=== PATIENT | female | born 1980 | race American Indian/Alaskan Native ===

== ENCOUNTER 2019-06-10 13:43 | Emergency (ER) | payer SELFPAY ==
--- NOTE | 2019-06-10 14:00 | Emergency Department Report ---
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 Pt was informed on 06/03 that the patient was confirmed positive for COVID. Pt has been in self-qu arantine since that time. Pt states she does not believe she was wearing PPE at that time. She now reports 2 day history of productive cough, body aches, runny nose, shortness of breath. Pt denies fever, reports chills. MD Complaint: cough -: days(s) (2) Severity: mild Consistency: constant Context: sick contacts (COVID +) Associated Symptoms: myalgias, rhinorrhea, cough, shortness of breath. denies: fever, sore throat, nausea, vomiting, diarrhea - Related Data Allergies Allergy/AdvReac Type Severity Reaction Status Date / Time No Known Allergies Allergy Unverified 06/10/19 13:45 ED Review of Systems ROS: Stated complaint: SHORTNESS OF BREATH Other details as noted in HPI Comment: All other systems reviewed and negative Constitutional: chills. denies: fever ENT: congestion. denies: throat pain Respiratory: cough, shortness of breath Cardiovascular: denies: chest pain Gastrointestinal: denies: nausea, vomiting, diarrhea Musculoskeletal: myalgia ED Past Medical Hx - Past Medical History Previous Medical History?: No - Surgical History Past Surgical History?: Yes Hx Appendectomy: Yes Additional Surgical History: myomectomy. x 1 - Social History Smoking Status: Never Smoker Substance Use Type: None ED Physical Exam - General Limitations: No Limitations General appearance: alert, in no apparent distress - Head Head exam: Present: atraumatic, normocephalic - Eye Eye exam: Present: normal appearance, EOMI - ENT ENT exam: Present: mucous membranes moist - Neck Neck exam: Present: normal inspection - Respiratory Respiratory exam: Present: normal lung sounds bilaterally. Absent: respiratory distress - Cardiovascular Cardiovascular Exam: Present: regular rate, normal rhythm - GI/Abdominal GI/Abdominal exam: Absent: distended - Extremities Exam Extremities exam: Present: normal inspection - Neurological Exam Neurological exam: Present: alert, oriented X3 - Psychiatric Psychiatric exam: Present: normal affect, normal mood - Skin Skin exam: Present: warm, dry, intact, normal color ED Course Vital Signs 06/10/19 06/10/19 14:24 16:07 Temperature 99.9 F H Pulse Rate 93 H 89 Respiratory 16 16 Rate Blood Pressure 125/77 127/73 [Left] O2 Sat by Pulse 100 100 Oximetry ED Medical Decision Making - Lab Data Result diagrams: 06/10/19 Unknown 06/10/19 Unknown - Radiology Data Radiology results: report reviewed, image reviewed - Medical Decision Making - known exposure to +COVID patient - denied fever at home, low grade temp here in ED - otherwise vitals normal - no resp distress, O2 sats normal - pt will be d/c'd home - name submitted online to [facility] of Health for COVID testing referral - swabs collected here in ED - pt advised to continue to self- quarantine - return precautions given - Differential Diagnosis pneumonia, viral illness, URI Critical care attestation.: If time is entered above; I have spent that time in minutes in the direct care of this critically ill patient, excluding procedure time. ED Disposition Clinical Impression: Upper respiratory infection Disposition: DC-01 TO HOME OR SELFCARE Is pt being admited?: No Condition: Stable Instructions: Upper Respiratory Infection (ED) Additional Instructions: Your chest xray was normal. Your flu test was negative. Your vital signs are normal. Your name has been referred to the Dept of Health to request that you get tested. If they feel that you meet the criteria, your swabs will be sent. Please continue to self-quarantine. Return to the ER if your symptoms worsen. Referrals: YOVANI PEDERSEN MD [Primary Care Provider] - 3-5 Days Time of Disposition: 17:09
[2019-06-10 14:55] LABS: Basophils % (Auto) 0.2 % (0.0-1.8); Hematocrit 37.9 % (30.3-42.9); Hemoglobin 12.8 gm/dl (10.1-14.3); Lymphocytes # (Auto) 0.8 K/mm3 (1.2-5.4); Lymphocytes % (Auto) 19.6 % (13.4-35.0); Mean Corpuscular HGB Conc 34 % (30-34); Mean Corpuscular Volume 82 fl (79-97); Monocytes # (Auto) 0.2 K/mm3 (0.0-0.8); Monocytes % (Auto) 3.8 % (0.0-7.3); Platelet Count 209 K/mm3 (140-440); Red Blood Count 4.64 M/mm3 (3.65-5.03); Red Cell Distribution Width 14.1 % (13.2-15.2)
[2019-06-10 15:16] LABS: BUN/Creatinine Ratio 12; Blood Urea Nitrogen 7 mg/dL (7-17); Calcium 9.7 mg/dL (8.4-10.2); Hemolysis Index 66
[2019-06-10 16:09] VITALS: BP 127/73
--- NOTE | 2019-06-10 16:37 | XRay Report ---
CHEST 1 VIEW 06/10/2019 3:29 PM INDICATION / CLINICAL INFORMATION: Cough and shortness of breath.. COMPARISON: None available. FINDINGS: SUPPORT DEVICES: None. HEART / MEDIASTINUM: No significant abnormality. LUNGS / PLEURA: No significant pulmonary or pleural abnormality. No pneumothorax. ADDITIONAL FINDINGS: No significant additional findings. IMPRESSION: 1. No acute findings. Signer Name: Bimal Garg MD Signed: 06/10/2019 4:33 PM Workstation Name: [id number]
== END 2019-06-10 18:04 | disposition home or self-care (01) ==
LOC: ED 13:43
DX: J06.9 Acute upper respiratory infection, unspecified (principal)
CPT/HCPCS: 36415; 71045; 80048; 84703; 85025; 87400

== ENCOUNTER 2020-09-26 16:20 | Emergency (ER) | payer OTHER ==
[2020-09-26 18:12] LABS: Basophils % (Auto) 0.5 % (0.0-1.8); Eosinophils % (Auto) 0.8 % (0.0-4.3); Hematocrit 36.1 % (30.3-42.9); Hemoglobin 11.9 gm/dl (10.1-14.3); Lymphocytes % (Auto) 24.7 % (13.4-35.0); Mean Corpuscular HGB Conc 33 % (30-34); Mean Corpuscular Volume 84 fl (79-97); Monocytes # (Auto) 0.3 K/mm3 (0.0-0.8); Monocytes % (Auto) 7.2 % (0.0-7.3); Platelet Count 197 K/mm3 (140-440); Red Blood Count 4.29 M/mm3 (3.65-5.03); Red Cell Distribution Width 14.9 % (13.2-15.2)
--- NOTE | 2020-09-26 20:21 | Emergency Department Report ---
ED Female HPI - General Chief complaint: Vaginal Bleeding Stated complaint: 12 WKS AND BLEEDING Time Seen by Provider: 09/26/20 20:02 Source: patient Mode of arrival: Ambulatory Limitations: No Limitations - History of Present Illness Complaint: vaginal bleeding, pelvic pain -: Gradual Location: suprapubic Radiation: non-radiating Severity: mild, moderate Quality: cramping - Related Data Allergies Allergy/AdvReac Type Severity Reaction Status Date / Time No Known Allergies Allergy Unverified 06/10/19 13:45 ED Review of Systems ROS: Stated complaint: 12 WKS AND BLEEDING Other details as noted in HPI ED Past Medical Hx - Past Medical History Previous Medical History?: Yes Additional medical history: Childbirth - Surgical History Past Surgical History?: Yes Hx Appendectomy: Yes Additional Surgical History: myomectomy. x 1 - Social History Smoking Status: Never Smoker Substance Use Type: None ED Physical Exam - General Limitations: No Limitations ED Course Vital Signs 09/26/20 16:41 Temperature 99.0 F Pulse Rate 89 Respiratory 18 Rate Blood Pressure 131/74 O2 Sat by Pulse 100 Oximetry ED Medical Decision Making - Lab Data Result diagrams: 09/26/20 17:43 Lab Results 09/26/20 09/26/20 09/26/20 Range/Units 17:43 17:43 Unknown WBC 4.2 L (4.5-11.0) K/mm3 RBC 4.29 (3.65-5.03) M/mm3 Hgb 11.9 (10.1-14.3) gm/dl Hct 36.1 (30.3-42.9) % MCV 84 (79-97) fl MCH 28 (28-32) pg MCHC 33 (30-34) % RDW 14.9 (13.2-15.2) % Plt Count 197 (140-440) K/mm3 Lymph % (Auto) 24.7 (13.4-35.0) % [place] % (Auto) 7.2 (0.0-7.3) % Eos % (Auto) 0.8 (0.0-4.3) % Baso % (Auto) 0.5 (0.0-1.8) % Lymph # (Auto) 1.0 L (1.2-5.4) K/mm3 [place] # (Auto) 0.3 (0.0-0.8) K/mm3 Eos # (Auto) 0.0 (0.0-0.4) K/mm3 Baso # (Auto) 0.0 (0.0-0.1) K/mm3 Seg Neutrophils % 66.8 (40.0-70.0) % Seg Neutrophils # 2.8 (1.8-7.7) K/mm3 HCG, Quant 5757 H (0-4) mIU/mL Blood Type A POSITIVE - Radiology Data Radiology results: report reviewed [address] [place] [id number] Ultrasound Report Signed Patient: JAYME WALL MR#: [id number] [birth year] : 1980 Acct:[id number] Age/Sex: 40 / F ADM Date: 09/26/20 Loc: ED Attending Dr: Ordering Physician: IAN SEGURA Date of Service: 09/26/20 Procedure(s): US OB transvaginal Accession Number(s): [id number] cc: IAN SEGURA ULTRASOUND OBSTETRIC INDICATION / CLINICAL INFORMATION: Vaginal bleeding pain. HCG level = 5757. Clinical Gestational Age (GA) in weeks, days: 12, 3 with an LMP of 07/01/20. TECHNIQUE: Transabdominal and Transvaginal. COMPARISON: None available. FINDINGS: UTERUS: No intrauterine identified. Uterus is enlarged measuring 11.3 x 12.6 x 12.0 cm. There are multiple fibroids throughout the uterus measuring up to 8.1 cm in size in the fundus. ADNEXA: Right ovary appears within normal limits. Left ovary is not visualized. No adnexal mass or cyst. FREE FLUID: None. ADDITIONAL FINDINGS: None. IMPRESSION: 1. No intrauterine identified. 2. Enlarged uterus containing multiple fibroids. Signer Name: Frederic Em MD Signed: 09/26/2020 10:10 PM Workstation Name: [id number] Transcribed By: DT Dictated By: Britton Em MD Electronically Authenticated By: Britton Em MD Signed Date/Time: 09/26/202209 DD/ 05 TD/TT: - Medical Decision Making This patient presents with vaginal bleeding in the first trimester, differential diagnosis includes ectopic , IUP, month threatened/inevitable , along with a completed . Patient is HDS and without a history of coagulopathy or infectious symptoms. The ultrasound not reveal an IUP at this time although the quant is elevated hCG quant Based on exam history and ED work-up patient presentation is not consistent with an ectopic , life-threatening coagulopathy, trauma, serious bacterial infection, central process or other emergency. Ultrasound showing multiple uterine flap fibroids is a possibility that patient did not be secondary to fibroids or the nonemergent cause of abnormal uterine bleeding but will make notation again that hCG is elevated plan is to discharge home with return precautions and instructions for prompt [facility] follow-up Critical care attestation.: If time is entered above; I have spent that time in minutes in the direct care of this critically ill patient, excluding procedure time. ED Disposition Clinical Impression: Vaginal bleeding, Uterine fibroids affecting in first trimester, Elevated serum hCG Disposition: - TO HOME OR SELFCARE Is pt being admited?: No Does the pt Need Aspirin: No Condition: Stable Instructions: Vaginal Bleeding During , First Trimester, Abnormal Uterine Bleeding Additional Instructions: Seen and evaluated emergency department today for vaginal bleeding. hCG is elevated although the ultrasound showing no evidence of any but several fibroid. Is likely that she may have had a miscarriage, has some fibroid associated bleeding among other causes. Please follow-up with your [facility] within 2 days. Return to emerge department if you experience worsening or uncontrolled bleeding, shortness of breath, feeling lightheaded, chest tightness, abdominal cramping, severe abdominal pain, fevers, vomiting or any other concerning symptom. Referrals: ZENY INMAN MD [Primary Care Provider] - 3-5 Days
[2020-09-26 21:52] VITALS: BP 131/74
--- NOTE | 2020-09-26 22:14 | Ultrasound Report ---
ULTRASOUND OBSTETRIC INDICATION / CLINICAL INFORMATION: Vaginal bleeding pain. HCG level = 5757. Clinical Gestational Age (GA) in weeks, days: 12, 3 with an LMP of 07/01/20. TECHNIQUE: Transabdominal and Transvaginal. COMPARISON: None available. FINDINGS: UTERUS: No intrauterine identified. Uterus is enlarged measuring 11.3 x 12.6 x 12.0 cm. The re are multiple fibroids throughout the uterus measuring up to 8.1 cm in size in the fundus. ADNEXA: Right ovary appears within normal limits. Left ovary is not visualized. No adnexal mass or cy st. FREE FLUID: None. ADDITIONAL FINDINGS: None. IMPRESSION: 1. No intrauterine identified. 2. Enlarged uterus containing multiple fibroids. Signer Name: Frederic Em MD Signed: 09/26/2020 10:10 PM Workstation Name: [id number]
[2020-09-26] MEDS ORDERED: HYDROcodone/ACETAMINOPHEN 5-325 MG TAB PO STA (23:38)
== END 2020-09-26 23:30 | disposition home or self-care (01) ==
LOC: ED 16:20
DX: O34.11 Maternal care for benign tumor of corpus uteri, first trimester (principal); O26.891 Other specified pregnancy related conditions, first trimester; E34.9 Endocrine disorder, unspecified; Z98.890 Other specified postprocedural states; Z79.899 Other long term (current) drug therapy; Z3A.12 12 weeks gestation of pregnancy
CPT/HCPCS: 36415; 76801; 76817; 84702; 85025; 86900; 86901